=== PATIENT | male | born 1990 | race Caucasian/White ===

== ENCOUNTER 2024-10-04 16:10 | Emergency (ER) | payer SELFPAY ==
[2024-10-04 16:12] VITALS: BP 124/76; PULSE 90; RESP 20; TEMP 36.8; O2SAT 99
--- NOTE | 2024-10-04 16:21 | ECG_ITS ---
APPROVED REPORT Exam: Resting ECG HR:82 bpm ECG Measurements Heart Rate 82 AXES KS 127 P 53 QRSd 97 QRS 81 QT 344 T 55 QTc 382 Conclusion SINUS RHYTHM NORMAL ECG UNCONFIRMED REPORT Electronically signed by : ALISON MARIE, 10/06/2024 05:17:17
--- NOTE | 2024-10-04 16:21 | PC.NURSE ---
manual bp 124/76 per alka
--- NOTE | 2024-10-04 16:24 | CT_ITS ---
PROCEDURE INFORMATION: Exam: CT Head Without Contrast Exam date and time: 10/04/2024 4:34 PM Age: 34 years old Clinical indication: Injury or trauma; Additional info: Trauma, critical injury suspected TECHNIQUE: Imaging protocol: Computed tomography of the head without contrast. Radiation optimization: All CT scans at this facility use at least one of these dose optimization techniques: automated exposure control; mA and/or kV adjustment per patient size (includes targeted exams where dose is matched to clinical indication); or iterative reconstruction. COMPARISON: No relevant prior studies available. FINDINGS: Brain: Normal. No hemorrhage. Unremarkable white matter. No mass effect. Cerebral ventricles: No ventriculomegaly. Paranasal sinuses: Visualized sinuses are unremarkable. No fluid levels. Mastoid air cells: Visualized mastoid air cells are well aerated. Bones: Unremarkable. No acute fracture. Soft tissues: Unremarkable. IMPRESSION: No acute intracranial abnormality.
--- NOTE | 2024-10-04 16:24 | CT_ITS ---
PROCEDURE INFORMATION: Exam: CT Cervical Spine Without Contrast Exam date and time: 10/04/2024 4:36 PM Age: 34 years old Clinical indication: Injury or trauma; Additional info: Trauma, critical injury suspected, fell off roof TECHNIQUE: Imaging protocol: Computed tomography of the cervical spine without contrast. Radiation optimization: All CT scans at this facility use at least one of these dose optimization techniques: automated exposure control; mA and/or kV adjustment per patient size (includes targeted exams where dose is matched to clinical indication); or iterative reconstruction. COMPARISON: CT HEAD/BRAIN WO CON 10/04/2024 4:34 PM FINDINGS: Bones: No acute fracture. Normal alignment. The disc spaces are preserved. No significant disc bulge or herniation. No severe spinal canal stenosis. No significant neural foraminal narrowing. Lungs: No acute findings at the lung apices. Soft tissues: Unremarkable. IMPRESSION: No acute findings.
--- NOTE | 2024-10-04 16:24 | CT_ITS ---
PROCEDURE INFORMATION: Exam: CTA Head With Contrast, Arteriography Exam date and time: 10/04/2024 4:49 PM Age: 34 years old Clinical indication: Injury or trauma; Additional info: Trauma, critical injury suspected TECHNIQUE: Imaging protocol: Computed tomographic angiography of the head with contrast. Exam focused on the arteries. 3D rendering (Not supervised by radiologist): MIP and/or 3D reconstructed images were created by the technologist. Radiation optimization: All CT scans at this facility use at least one of these dose optimization techniques: automated exposure control; mA and/or kV adjustment per patient size (includes targeted exams where dose is matched to clinical indication); or iterative reconstruction. Contrast material: ISOVUE 370; Contrast volume: 160 ml; Contrast route: INTRAVENOUS (IV); COMPARISON: CT HEAD/BRAIN WO CON 10/04/2024 4:34 PM FINDINGS: ANTERIOR CIRCULATION: Right internal carotid artery: Intracranial segment is patent with no significant stenosis. No aneurysm. Right middle cerebral artery: No occlusion or significant stenosis. No aneurysm. Right anterior cerebral artery: No occlusion or significant stenosis. No aneurysm. Left internal carotid artery: Intracranial segment is patent with no significant stenosis. No aneurysm. Left middle cerebral artery: No occlusion or significant stenosis. No aneurysm. Left anterior cerebral artery: No occlusion or significant stenosis. No aneurysm. POSTERIOR CIRCULATION: Right vertebral artery: Terminal segment is hypoplastic. No occlusion. No aneurysm. Left vertebral artery: No occlusion or significant stenosis. No aneurysm. Basilar artery: No occlusion or significant stenosis. No aneurysm. Right posterior cerebral artery: No occlusion or significant stenosis. No aneurysm. Left posterior cerebral artery: No occlusion or significant stenosis. No aneurysm. Brain: No intracranial hemorrhage, mass effect, or midline shift. Cerebral ventricles: No ventriculomegaly. Bones/joints: Unremarkable. No acute fracture. Soft tissues: Unremarkable. IMPRESSION: 1. No large vessel occlusion or significant stenosis. 2. 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
--- NOTE | 2024-10-04 16:24 | CT_ITS ---
PROCEDURE INFORMATION: Exam: CT Thoracic Spine Without Contrast Exam date and time: 10/04/2024 4:38 PM Age: 34 years old Clinical indication: Injury or trauma; Additional info: Trauma, critical injury suspected TECHNIQUE: Imaging protocol: Computed tomography of the thoracic spine without contrast. Radiation optimization: All CT scans at this facility use at least one of these dose optimization techniques: automated exposure control; mA and/or kV adjustment per patient size (includes targeted exams where dose is matched to clinical indication); or iterative reconstruction. COMPARISON: CT CERVICAL SPINE WO CON 10/04/2024 4:36 PM FINDINGS: Bones/joints: Normal anatomic alignment. The bone density is normal for this patient's age. Vertebral body heights are well preserved. Preserved intervertebral disc spaces. The spinal canal is patent. There is no evidence of foraminal stenosis. No acutely displaced fractures. No joint dislocation. No aggressive osseous lesions. Soft tissues: No acute soft tissue findings. Lungs: Calcified granulomas throughout the lungs are benign. Subpleural atelectasis of the dependent portions of the lungs. No acute findings in the included segments of the lungs. Retroperitoneal space: No acute findings in the included segments of the retroperitoneum. Other findings: Right hilar calcified granulomas, benign. Left hilar calcified granulomas are benign. IMPRESSION: No acute skeletal pathology.
--- NOTE | 2024-10-04 16:24 | CT_ITS ---
PROCEDURE INFORMATION: Exam: CT Lumbar Spine Without Contrast Exam date and time: 10/04/2024 4:41 PM Age: 34 years old Clinical indication: Injury or trauma; Additional info: Trauma, critical injury suspected TECHNIQUE: Imaging protocol: Computed tomography of the lumbar spine without contrast. Radiation optimization: All CT scans at this facility use at least one of these dose optimization techniques: automated exposure control; mA and/or kV adjustment per patient size (includes targeted exams where dose is matched to clinical indication); or iterative reconstruction. COMPARISON: CT THORACIC SPINE WO CON 10/04/2024 4:38 PM FINDINGS: Bones/joints: Normal anatomic alignment. The bone density is normal for this patient's age. Moderate disc space narrowing at L5-S1. Remainder of the disc spaces are well preserved. Vertebral body heights are well preserved. The spinal canal is patent. No bony neural foraminal stenosis is present. No acutely displaced fractures. No joint dislocation. No aggressive osseous lesions. Soft tissues: No acute soft tissue findings. Other findings: No acute findings in the included segments of the retroperitoneum. IMPRESSION: No acute skeletal pathology.
--- NOTE | 2024-10-04 16:24 | CT_ITS ---
PROCEDURE INFORMATION: Exam: CTA Neck With Contrast Exam date and time: 10/04/2024 4:49 PM Age: 34 years old Clinical indication: Injury or trauma; Additional info: Trauma, critical injury suspected TECHNIQUE: Imaging protocol: Computed tomographic angiography of the neck with contrast. Exam focused on the cervical segments of the vasculature. 3D rendering (Not supervised by radiologist): MIP and/or 3D reconstructed images were created by the technologist. Radiation optimization: All CT scans at this facility use at least one of these dose optimization techniques: automated exposure control; mA and/or kV adjustment per patient size (includes targeted exams where dose is matched to clinical indication); or iterative reconstruction. Contrast material: ISOVUE 370; Contrast volume: 160 ml; Contrast route: INTRAVENOUS (IV); COMPARISON: CT CERVICAL SPINE WO CON 10/04/2024 4:36 PM FINDINGS: Right common carotid artery: No stenosis. No dissection or occlusion. Right internal carotid artery: No stenosis of the extracranial segment. No dissection or occlusion. Right external carotid artery: No occlusion or stenosis of the origin. Left common carotid artery: No stenosis. No dissection or occlusion. Left internal carotid artery: No stenosis of the extracranial segment. No dissection or occlusion. Left external carotid artery: No occlusion or stenosis of the origin. Right vertebral artery: Right vertebral artery is hypoplastic but patent. Left vertebral artery: No stenosis. No dissection or occlusion. Soft tissues: Normal. No significant soft tissue swelling. Bones/joints: No acute fracture. IMPRESSION: 1. No evidence of vascular injury. 2. Congenitally hypoplastic right vertebral artery. REFERENCES: NASCET CRITERIA. The degree of stenosis in the cervical segment of the internal carotid artery is based on NASCET criteria. Normal is no stenosis. Mild is less than 50% stenosis. Moderate is 50-69% stenosis. Severe is 70% to 99% stenosis. Total occlusion is no detectable patent lumen.
--- NOTE | 2024-10-04 16:24 | XR_ITS ---
PROCEDURE INFORMATION: Exam: XR Pelvis Exam date and time: 10/04/2024 4:22 PM Age: 34 years old Clinical indication: Injury or trauma; Fall; Blunt trauma (contusions or hematomas); Does not apply; Pelvic region TECHNIQUE: Imaging protocol: Radiologic exam of the pelvis. Views: 1 or 2 view. COMPARISON: No relevant prior studies available. FINDINGS: Bones/joints: Normal anatomic alignment. The bone density is normal for this patient's age. No acutely displaced fractures. No joint dislocation. No aggressive osseous lesions. Joint spaces are well preserved. Soft tissues: No acute soft tissue findings. IMPRESSION: No acute skeletal pathology.
--- NOTE | 2024-10-04 16:24 | CT_ITS ---
PROCEDURE INFORMATION: Exam: CTA Abdomen and Pelvis With Contrast Exam date and time: 10/04/2024 4:44 PM Age: 34 years old Clinical indication: Injury or trauma; Additional info: Trauma, critical injury suspected TECHNIQUE: Imaging protocol: Computed tomographic angiography of the abdomen and pelvis with contrast. Exam focused on the arteries. 3D rendering (Not supervised by radiologist): MIP and/or 3D reconstructed images were created by the technologist. Radiation optimization: All CT scans at this facility use at least one of these dose optimization techniques: automated exposure control; mA and/or kV adjustment per patient size (includes targeted exams where dose is matched to clinical indication); or iterative reconstruction. Contrast material: ISOVUE 370; Contrast volume: 180 ml; Contrast route: INTRAVENOUS (IV); COMPARISON: CR XR PELVIS 1-2V 10/04/2024 4:22 PM FINDINGS: Aorta: Aorta is normal in course and caliber. No acute pathology in the aorta. No aortic aneurysm. Celiac trunk and mesenteric arteries: Celiac trunk is patent and without stenosis, occlusion, or dissection. Superior mesenteric artery is completely patent and without stenosis or occlusion. Inferior mesenteric artery is completely patent and without stenosis or occlusion. Renal arteries: No dissection, significant stenosis, or occlusion in the right renal artery. No dissection, significant stenosis, or occlusion in the left renal artery. Right iliac arteries: Right iliac arteries are completely patent and without stenosis or occlusion. Left iliac arteries: Left iliac arteries are completely patent and without stenosis or occlusion. Veins: Portal venous system is patent. Liver: Liver is enlarged measuring 18 cm. The liver is otherwise unremarkable. Gallbladder and biliary ducts: Gallbladder is normal. There is no evidence of biliary ductal dilation. Pancreas: The pancreas is normal. Spleen: Spleen is enlarged measuring 13 cm in length. The spleen demonstrates punctate calcifications, consistent with remote granulomatous organism exposure. The spleen is otherwise unremarkable. Adrenal glands: Adrenal glands are normal. Kidneys and ureters: The kidneys are normal. No hydroureter. Stomach and bowel: Severe constipation. No bowel thickening. There is no evidence of intestinal obstruction. Appendix: A normal appendix is identified. Intraperitoneal space: There is no evidence of free intraperitoneal or pelvic fluid. No intraperitoneal fluid collections. There is no free intraperitoneal air. Lymph nodes: There is no evidence of lymphadenopathy. Urinary bladder: The bladder is normal. Reproductive: Reproductive organs are unremarkable as visualized. Bones/joints: No acutely displaced fractures. No joint dislocation. No aggressive osseous lesions. Soft tissues: Nonobstructing fat containing right inguinal hernia. Fat containing umbilical hernia. No acute soft tissue findings. IMPRESSION: 1. No acute abdominopelvic pathology. 2. Incidental findings as above. COMMENTS: Please review chest CT performed concomitantly for other important findings.
--- NOTE | 2024-10-04 16:24 | CT_ITS ---
PROCEDURE INFORMATION: Exam: CTA Chest With Contrast Exam date and time: 10/04/2024 4:44 PM Age: 34 years old Clinical indication: Injury or trauma; Additional info: Trauma, critical injury suspected TECHNIQUE: Imaging protocol: Computed tomographic angiography of the chest with contrast. Exam focused on the arteries. 3D rendering (Not supervised by radiologist): MIP and/or 3D reconstructed images were created by the technologist. Radiation optimization: All CT scans at this facility use at least one of these dose optimization techniques: automated exposure control; mA and/or kV adjustment per patient size (includes targeted exams where dose is matched to clinical indication); or iterative reconstruction. Contrast material: ISOVUE 370; Contrast volume: 160 ml; Contrast route: INTRAVENOUS (IV); COMPARISON: CR XR CHEST PORTABLE 10/04/2024 4:18 PM FINDINGS: Pulmonary arteries: The pulmonary arteries are normal in course and caliber. Aorta: Aorta is normal in course and caliber. No acute pathology in the aorta. Thyroid: The thyroid gland is normal. Trachea: Airways are patent. Lungs: Calcified granulomas throughout the lungs are benign. Subpleural atelectasis of the dependent portions of the lungs. Bilateral bronchial wall thickening. No consolidations. Pleural spaces: No pleural effusions or pneumothorax. Heart: No cardiomegaly. No pericardial thickening or effusion. Coronary arteries: There is no evidence of atherosclerotic coronary artery calcifications. Mediastinal space: Calcified hilar granulomas, benign. Scattered calcified granulomas throughout the mediastinum are benign. Mediastinum is otherwise unremarkable. Lymph nodes: No concerning adenopathy. Bones/joints: Normal variant sternal os is present. No acutely displaced fractures. No joint dislocation. No aggressive osseous lesions. Soft tissues: No acute soft tissue findings. IMPRESSION: 1. No acute posttraumatic thoracic injury. 2. Acute/chronic bronchitis or reactive airways disease. COMMENTS: Please review abdomen and pelvic CT performed on the same date for other findings.
--- NOTE | 2024-10-04 16:24 | XR_ITS ---
PROCEDURE INFORMATION: Exam: XR Chest Exam date and time: 10/04/2024 4:18 PM Age: 34 years old Clinical indication: Injury or trauma; Fall; Blunt trauma (contusions or hematomas) TECHNIQUE: Imaging protocol: Radiologic exam of the chest. Views: 1 view. COMPARISON: No relevant prior studies available. FINDINGS: Airway: Airways are patent. Lungs: Low lung volumes causes crowding of the bronchovascular structures. No consolidations. Pleural spaces: No pleural effusions or pneumothorax. Heart/Mediastinum: Cardiomediastinal silhouette is magnified due to technique. Bones/joints: No acute skeletal abnormality or aggressive osseous lesion. Soft tissues: No acute soft tissue findings. IMPRESSION: No acute thoracic pathology.
[2024-10-04 16:26] VITALS: PULSE 90; RESP 18; TEMP 36.8; O2SAT 96; BMI 25.0
--- NOTE | 2024-10-04 16:31 | ED_ITS ---
Discharge Plan Disposition Patient Disposition: Home, Self-Care Condition: Good Referrals Follow up/Referrals: Ifrah Scott [Primary Care Provider] - See instructions Activity Restrictions/Add. Instructions Additional Instructions/Restrictions: As we discussed, your CT scans did not show any broken bones or bleeding internally. 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 Please return with any new or worsening symptoms Clinical Impressions Clinical Impression: Closed head injury Print Language Print Language: Polish Discharge ED Provider: Ge Thompson General Adult HPI General Chief complaint: Trauma Alert Stated complaint: AO 4-1 fell off roof Time Seen by Provider: 10/04/24 16:26 History of Present Illness HPI narrative: Patient presents after a fall from approximately 10 feet with no loss of consciousness, describes pain in his face, head, extremities, no numbness or tingling. Fall was onto ground surface. He states he is up to date on tetanus. No blood thinner usage. Denies any pain in his torso or abdomen. He states he slipped and did not have any preceding symptoms. No previous therapies. Please note that above description of symptoms, in this electronic medical record under categorization of recalled from ER triage doctor by RN are reflective of an initial nursing assessment, however, is not reflective of my full history and physical exam that was personally taken and clarified. Consequentially, this preceding description of symptoms, which may include the patient's categorized chief complaint in the EMR, do not reflect my personal clinical impression, and the ultimate description of history of present illness and patient stated complaints should be deferred to this section of the note. Unless stated otherwise or congruent with this section of the note, additional signs, symptoms, or incongruence should be interpreted as inaccurate with my clinical impression. Related Data Allergies Allergy/AdvReac Type Severity Reaction Status Date / Time No Known Allergies Allergy Verified 10/04/24 17:19 [facility] Disclaimer: The information contained in this section may have been updated after the patient was seen, as this information can be updated by other users. Social History Smoking Status: Never smoker alcohol intake: never current occupational status: other Travel in the last 8 weeks: None ROS Obtained: Yes other As per HPI Physical Exam General General appearance: alert and in no apparent distress Head Head exam: atraumatic and normocephalic Eye Eye exam: Present normal appearance Neck Neck exam: Present normal inspection Chest Chest inspection: Present normal inspection and symmetric chest wall rise Respiratory Respiratory exam: Present normal lung sounds bilaterally; Absent respiratory distress Cardiovascular Cardiovascular exam: Present regular rate and normal rhythm Abdominal Exam Abdominal exam: Present soft Neurological Exam Neurological exam: Present alert and oriented X3 Psychiatric Psychiatric exam: Present normal affect and normal mood Skin Skin exam: Present warm and dry Medical Decision Making Medical Records Medical records reviewed: Yes I reviewed the patient's medical records. Screening: Per USPSTF and CDC recommendations, given the prevalence of disease in our region, it is our hospital?s policy to screen for HIV and viral Hepatitis for all patients aged 18 and over and those with ongoing risk factors. [place] Inquiry Pt receiving controlled substance: No Vital Signs: 10/04/24 16:12 10/04/24 16:26 10/04/24 18:15 Temperature 98.2 F 98.2 F 98.2 F Temperature Source Oral Oral Oral Pulse Rate 84 Pulse Rate [Apical] 90 90 Respiratory Rate 20 18 18 Blood Pressure 138/78 Blood Pressure [Left Arm] 124/76 Blood Pressure Mean [Left Arm] 92 Blood Pressure Source Automatic Cuff Blood Pressure Source [Left Arm] Manual Cuff/ Auscultation Blood Pressure Position Sitting Blood Pressure Position [Left Arm] Sitting 02 Sat by Pulse Oximetry 99 96 Oxygen Delivery Method Room Air Room Air Room Air Lab Data Lab Results 10/04/24 16:20: WBC 7.0, RBC 5.65, Hgb 15.4, Hct 43.0, MCV 76.1 L, MCH 27.3, M CHC 35.8 H, RDW 12.6, Plt Count 233, MPV 11.4 H, Neut % (Auto) 68.3, Lymph % (Auto) 23.8, [place] % (Auto) 6.9, Eos % (Auto) 0.4, Baso % (Auto) 0.3, Neut # (Auto) 4.8, Lymph # (Auto) 1.7, [place] # (Auto) 0.5, Eos # (Auto) 0.0, Baso # (Auto) 0.0, Sodium 136, Potassium 3.9, Chloride 98, Carbon Dioxide 27, Anion Gap 14.9, BUN 18, Creatinine 0.70, Estimated GFR 128, Est GFR ( Amer) 154, G lucose 298 H, Calcium 10.0, Total Bilirubin 0.5, AST 41, ALT 40, Alkaline Phosphatase 56, Total Protein 7.1, Albumin 4.4, Globulin 2.7, Albumin/Globulin Ratio 1.6, HCV Ab RICK w/Rflx PCR Qn Negative, HIV Ag/Ab Combo Qual Negative 10/04/24 16:20 10/04/24 16:20 Orders (Tests/Meds): ED MEDICATIONS Discontinued Medications Generic Name Dose Route Start Last Admin Trade Name Freq PRN Reason Stop Dose Admin Iopamidol 160 ml 10/04/24 16:40 10/04/24 16:41 Iopamidol-370 (76%);100ml Bottle IV 10/04/24 16:41 160 ml ONCE ONE Administration Ketorolac Tromethamine 15 mg 10/04/24 16:23 10/04/24 17:21 Ketorolac 30mg/Ml Vial IV 10/04/24 16:24 15 mg ONCE ONE Administration Sodium Chloride 10 ml 10/04/24 16:23 Sodium Chloride 0.9% 10ml Flush Syringe IV 11/03/24 16:22 NEEDED PRN Maintain IV Site Sodium Chloride 10 ml 10/04/24 16:40 10/04/24 16:41 Sodium Chloride 0.9% 10ml Syr (Rad Only) IV 11/03/24 16:39 10 ml NEEDED PRN Administration Maintain IV Site Sodium Chloride 100 ml 10/04/24 16:40 10/04/24 16:41 0.9 % Sodium Chloride 50 Ml Vial IV 10/04/24 16:41 100 ml ONCE ONE Administration ORDERS Category Date Time Status CT angio abd/pel - TRAUMA Stat Cat Scan 10/04/24 16:[address] angio chest - dissection Stat Cat Scan 10/04/24 16:[address] angio head Stat Cat Scan 10/04/24 16:[address] angio neck Stat Cat Scan 10/04/24 16:[address] cervical spine wo con Stat Cat Scan 10/04/24 16:[address] head/brain wo con Stat Cat Scan 10/04/24 16:[address] lumbar spine wo con Stat Cat Scan 10/04/24 16:[address] thoracic spine wo con Stat Cat Scan 10/04/24 16:24 Completed XR chest portable Stat Exams 10/04/24 16:24 Completed XR pelvis 1-2V Stat Exams 10/04/24 16:24 Completed Complete Blood Count Auto Diff Stat Lab 10/04/24 16:20 Completed Comprehensive Metabolic Panel Stat Lab 10/04/24 16:20 Completed HIV Combo Stat Lab 10/04/24 16:20 Completed Hepatitis C Ab Qual. W/ RFX Stat Lab 10/04/24 16:20 Completed Medical Decision Narrative: Patient with history and exam per above presenting for evaluation of injury following fall from standing Diagnoses considered include fracture, hemorrhage, abdominal organ injury, pulmonary contusion, etc., patient is up-to-date on tetanus, no acute evidence of disability or obvious osseous injury. ED workup and treatment included: ED MEDICATIONS Discontinued Medications Generic Name Dose Route Start Last Admin Trade Name Freq PRN Reason Stop Dose Admin Iopamidol 160 ml 10/04/24 16:40 10/04/24 16:41 Iopamidol-370 (76%);100ml Bottle IV 10/04/24 16:41 160 ml ONCE ONE Administration Ketorolac Tromethamine 15 mg 10/04/24 16:23 10/04/24 17:21 Ketorolac 30mg/Ml Vial IV 10/04/24 16:24 15 mg ONCE ONE Administration Sodium Chloride 10 ml 10/04/24 16:23 Sodium Chloride 0.9% 10ml Flush Syringe IV 11/03/24 16:22 NEEDED PRN Maintain IV Site Sodium Chloride 10 ml 10/04/24 16:40 10/04/24 16:41 Sodium Chloride 0.9% 10ml Syr (Rad Only) IV 11/03/24 16:39 10 ml NEEDED PRN Administration Maintain IV Site Sodium Chloride 100 ml 10/04/24 16:40 10/04/24 16:41 0.9 % Sodium Chloride 50 Ml Vial IV 10/04/24 16:41 100 ml ONCE ONE Administration ORDERS Category Date Time Status CT angio abd/pel - TRAUMA Stat Cat Scan 10/04/24 16:[address] angio chest - dissection Stat Cat Scan 10/04/24 16:[address] angio head Stat Cat Scan 10/04/24 16:[address] angio neck Stat Cat Scan 10/04/24 16:[address] cervical spine wo con Stat Cat Scan 10/04/24 16:[address] head/brain wo con Stat Cat Scan 10/04/24 16:[address] lumbar spine wo con Stat Cat Scan 10/04/24 16:[address] thoracic spine wo con Stat Cat Scan 10/04/24 16:24 Completed XR chest portable Stat Exams 10/04/24 16:24 Completed XR pelvis 1-2V Stat Exams 10/04/24 16:24 Completed Complete Blood Count Auto Diff Stat Lab 10/04/24 16:20 Completed Comprehensive Metabolic Panel Stat Lab 10/04/24 16:20 Completed HIV Combo Stat Lab 10/04/24 16:20 Completed Hepatitis C Ab Qual. W/ RFX Stat Lab 10/04/24 16:20 Completed Labs were independently interpreted by me, significant for no acute findings Imaging was independently visualized and interpreted by me, significant for no acute findings, incidental findings which were communicated to patient Please refer to radiology report for full details. Patient had improvement of symptoms upon repeat evaluation was alert oriented and ambulatory. I discussed my clinical impression with patient and answered all questions. At this time, the evidence for any other entities in the differential is insufficient to warrant any further testing or ED observation. This was explained to the patient. The patient was advised that persistent or worsening symptoms require further evaluation. Critical Care Critical Care Time Critical Care Time: No
[2024-10-04 16:33] LABS: Basophils % 0.3 % (0.1-2.0); Eosinophils % 0.4 % (0.1-12.0); Hemoglobin 15.4 g/dL (14.1-18.0); Lymphocytes # 1.7 K/mm3 (0.7-4.5); Lymphocytes % 23.8 % (10-50); Mean Corpuscular HGB Conc 35.8 g/dL (31.8-35.4); Mean Corpuscular Hemoglobin 27.3 pg (27.0-31.2); Mean Corpuscular Volume 76.1 fl (80-94); Mean Platelet Volume 11.4 fl (7.4-10.4); Monocytes # 0.5 K/mm3 (0.1-1.0); Monocytes % 6.9 % (1.7-9.3); Neutrophils # 4.8 K/mm3 (1.8-7.8); Neutrophils % 68.3 % (37.0-80.0); Platelet Count 233 K/mm3 (142-424); Red Blood Count 5.65 M/mm3 (4.60-6.20); Red Cell Distribution Width 12.6 % (11.5-17.5)
[2024-10-04] MEDS: IOPAMIDOL-370 (76%);100ML BOTTLE 160 ML IV (16:41)
[2024-10-04] MEDS: 0.9 % SODIUM CHLORIDE 50 ML VIAL 100 ML IV (16:41)
[2024-10-04] MEDS: SODIUM CHLORIDE 0.9% 10ML SYR (RAD ONLY) 10 ML IV (16:41)
[2024-10-04 16:42] LABS: Alanine Aminotransferase 40 U/L (12-78); Albumin Level 4.4 g/dl (3.5-5.0); Albumin/Globulin Ratio 1.6 (1.1-1.8); Alkaline Phosphatase 56 U/L (38-126); Anion Gap 14.9 mEq/L (5-15); Aspartate Amino Transferase 41 U/L (17-59); Bilirubin,Total 0.5 mg/dl (0.2-1.3); Blood Urea Nitrogen 18 mg/dl (9-20); Carbon Dioxide 27 mmol/L (22.0-30.0); Chloride 98 mmol/L (98-107); Estimated Glomerular Filt Rate 128 ml/min (>60); GFR (African American) 154 ML/MIN (>60); Globulin 2.7 g/dL (1.3-3.2); Glucose 298 mg/dl (74-100); Potassium 3.9 mmoL/L (3.5-5.1); Sodium 136 mmol/L (136-145); Total Protein,Serum 7.1 g/dl (6.3-8.2)
[2024-10-04] MEDS: KETOROLAC 30MG/ML VIAL 15 MG IV (17:21)
[2024-10-04 18:15] VITALS: BP 138/78; PULSE 84; RESP 18; TEMP 36.8; O2SAT 99
[2024-10-04 21:03] LABS: HIV Combo NEGATIVE (Negative)
[2024-10-04 21:12] LABS: Hepatitis C Ab Qual. W/ RFX NEGATIVE (Negative)
== END 2024-10-04 18:16 | disposition home or self-care (01) ==
PROVIDERS: Emergency Provider Emergency Medicine; PCP Nurse Practitioner Family
DX: S09.90XA Unspecified injury of head, initial encounter (principal); W17.89XA Other fall from one level to another, initial encounter
CPT/HCPCS: 70450; 70496; 70498; 71045; 71275; 72125; 72128; 72131; 72170; 74174; 80053; 85025; 86803; 87389; 93005; 96374; 99285; J1885; Q9967